=== PATIENT | female | born 1960 | race American Indian/Alaskan Native ===

== ENCOUNTER 2017-03-14 09:49 | Emergency (ER) | payer MEDICARE, OTHER ==
[2017-03-14 10:19] VITALS: BP 125/79; PULSE 83; RESP 16; TEMP 97.8; O2SAT 100
[2017-03-14] MEDS ORDERED: Albuterol 0.083% Inhal Sol (2.5 mg/3 mL) UD ONE (11:14)
[2017-03-14] MEDS ORDERED: Albuterol 0.083% Inhal Sol (2.5 mg/3 mL) UD INH STA (11:17)
--- NOTE | 2017-03-14 11:28 | ED PDOC ---
HPI: CCC, URI, Sore Throat Time Seen by Provider: 03/14/17 10:36 Chief Complaint (Nursing): Cough, Cold, Congestion History Per: Patient History/Exam Limitations: no limitations Have you had recent travel within the past 21 days to any of the following countries: [place], [place], [place] or [place]?: No Onset/Duration Of Symptoms: Gradual Current Symptoms Are (Timing): Still Present Location Of Pain: None Sick Contacts (Context): None Associated Symptoms: Cough, Sputum (yellow). denies: Fever, Chills, Sore Throat , Neck Pain, Nasal Congestion, Nausea, Vomiting, Diarrhea Ear Symptoms: Bilateral: None Severity: Mild Additional History Per: Patient Additional Complaint(s): Pt c/o coughing for x2 days that has been keeping her up at night. No chest pain , no fever, no vomiting, no diarrhea. Past Medical History Reviewed: Historical Data, Nursing Documentation, Vital Signs Vital Signs: Last Vital Signs Temp 97.8 F 03/14/17 10:19 Pulse 83 03/14/17 10:19 Resp 16 03/14/17 10:19 BP 125/79 03/14/17 10:19 Pulse Ox 100 03/14/17 11:30 - Medical History PMH: HTN - Family History Family History: States: Unknown Family Hx - Living Arrangements Living Arrangements: With Family - Social History Current smoker - smoking cessation education provided: No - Immunization History Hx Tetanus Toxoid Vaccination: No Hx Influenza Vaccination: Yes (may 2015) Hx Pneumococcal Vaccination: No - Home Medications Home Medications: Ambulatory Orders Medication Instructions Recorded Lisinopril [Zestril] 5 mg PO DAILY 04/24/15 Albuterol HFA [Ventolin HFA 90 1 puff IH Q6 PRN #1 inhaler 03/14/17 mcg/actuation (8 g)] Loratadine/Pseudoephedrine 1 each PO DAILY PRN #30 tab.er.24h 03/14/17 [Claritin-D 24 Hour Tablet] - Allergies Allergies/Adverse Reactions: Allergies Allergy/AdvReac Type Severity Reaction Status Date / Time No Known Allergies Allergy Verified 10/31/14 18:08 Review of Systems ROS Statement: Except As Marked, All Systems Reviewed And Found Negative Constitutional: Negative for: Fever, Chills Cardiovascular: Negative for: Chest Pain, Palpitations Respiratory: Positive for: Cough, Sputum (yellow). Negative for: Shortness of Breath, SOB with Exertion Gastrointestinal: Negative for: Nausea, Vomiting, Abdominal Pain Skin: Negative for: Rash Neurological: Negative for: Weakness, Numbness Physical Exam - Reviewed Nursing Documentation Reviewed: Yes Vital Signs Reviewed: Yes - Physical Exam Head Exam: Positive for: ATRAUMATIC, NORMAL INSPECTION Eye Exam: Positive for: Normal appearance, EOMI, PERRL Neck: Positive for: Normal, Painless ROM, Supple Cardiovascular/Chest: Positive for: Regular Rate, Rhythm. Negative for: Murmur , Bradycardia, Tachycardia Respiratory: Positive for: Normal Breath Sounds, Wheezing (mild scattered). Negative for: Decreased Breath Sounds, Accessory Muscle Use, Crackles, Rales, Rhonchi, Stridor Gastrointestinal/Abdominal: Positive for: Normal Exam, Bowel Sounds, Soft. Negative for: Tenderness Back: Positive for: Normal Inspection. Negative for: L CVA Tenderness, R CVA Tenderness Extremity: Positive for: Normal ROM. Negative for: Tenderness, Pedal Edema Neurologic/Psych: Positive for: Alert, link trainer II-XII, Oriented. Negative for: Motor/Sensory Deficits - Laboratory Results Urine POC: Negative - ECG O2 Sat by Pulse Oximetry: 100 Pulse Ox Interpretation: Normal - Radiology X-Ray: Interpreted by Me X-Ray Interpretation: No Acute Disease - Progress ED Course And Treament: sx improved with albuterol and clartin dYaneli advise albuterol. pt agree's with plan Re-evaluation Time: 11:57 Condition: Improved Disposition - Clinical Impression Clinical Impression: Cough - Patient ED Disposition Is Patient to be Admitted: No Counseled Patient/Family Regarding: Studies Performed, Diagnosis, Need For Followup, Rx Given - Disposition Referrals: [facility] [place] [Outside] (2 to 3 days) Disposition: Routine/Home Disposition Time: 11:58 Condition: GOOD Prescriptions: Albuterol HFA [Ventolin HFA 90 mcg/actuation (8 g)] 1 puff IH Q6 PRN #1 inhaler PRN Reason: Cough Loratadine/Pseudoephedrine [Claritin-D 24 Hour Tablet] 1 each PO DAILY PRN #30 tab.er.24h PRN Reason: Cough Instructions: Acute Cough (ED)
--- NOTE | 2017-03-14 11:47 | RAD ---
HISTORY: cough COMPARISON: Chest x-ray performed 07/29/15 TECHNIQUE: Chest PA and lateral FINDINGS: LUNGS: No focal consolidation. Please note that chest x-ray has limited sensitivity for the detection of pulmonary masses. PLEURA: No significant pleural effusion identified. No definite pneumothorax . CARDIOVASCULAR: The cardiomediastinal silhouette appears within normal limits of size. OSSEOUS STRUCTURES: Degenerative changes of the spine. VISUALIZED UPPER ABDOMEN: Unremarkable. OTHER FINDINGS: None. IMPRESSION: No focal consolidation, significant pleural effusion, or definite pneumothorax identified.
== END 2017-03-14 12:11 | disposition home or self-care (01) ==
LOC: H.ER 09:49
DX: R05 Cough (principal); I10 Essential (primary) hypertension

== ENCOUNTER 2017-07-16 17:16 | Emergency (ER) | payer MEDICARE, OTHER ==
[2017-07-16 17:23] VITALS: BP 133/74; PULSE 77; RESP 16; TEMP 98.3; O2SAT 100
--- NOTE | 2017-07-16 17:46 | ED PDOC ---
HPI: Skin/Bite Injury Time Seen by Provider: 07/16/17 17:23 Chief Complaint (Nursing): Bite Chief Complaint (Provider): rash History Per: Patient History/Exam Limitations: no limitations Onset/Duration Of Symptoms: Days (x2) Current Symptoms Are (Timing): Still Present Additional Complaint(s): Marjorie Iyer is a 56 year old female with previous medical history of hypertension, who presents to the emergency department with a complaint of skin rash on right-sided abdomen radiating to mid-back associated with pain ongoing for 2 weeks. Denied itchiness, dysuria or hematuria. Patient stated she had been using hydrocortisone cream to treat rash and feels slight improvements. PMD: none provided Past Medical History Reviewed: Historical Data, Nursing Documentation, Vital Signs Vital Signs: Last Vital Signs Temp 98.3 F 07/16/17 17:17 Pulse 77 07/16/17 17:17 Resp 16 07/16/17 17:17 BP 133/74 07/16/17 17:17 Pulse Ox 100 07/16/17 17:53 - Medical History PMH: HTN - Family History Family History: States: Unknown Family Hx - Social History Current smoker - smoking cessation education provided: No Ex-Smoker (has not smoked in the last 12 months): No Alcohol: None Drugs: Denies - Immunization History Hx Tetanus Toxoid Vaccination: No Hx Influenza Vaccination: Yes (may 2015) Hx Pneumococcal Vaccination: No - Home Medications Home Medications: Ambulatory Orders Medication Instructions Recorded Lisinopril [Zestril] 5 mg PO DAILY 04/24/15 Albuterol HFA [Ventolin HFA 90 1 puff IH Q6 PRN #1 inhaler 03/14/17 mcg/actuation (8 g)] Loratadine/Pseudoephedrine 1 each PO DAILY PRN #30 tab.er.24h 03/14/17 [Claritin-D 24 Hour Tablet] Methylprednisolone [Medrol Dose 4 mg PO DAILY #21 mg 07/16/17 Pack (21 tabs)] - Allergies Allergies/Adverse Reactions: Allergies Allergy/AdvReac Type Severity Reaction Status Date / Time No Known Allergies Allergy Verified 10/31/14 18:08 Review of Systems ROS Statement: Except As Marked, All Systems Reviewed And Found Negative Gastrointestinal: Positive for: Abdominal Pain (with rash) Genitourinary Female: Negative for: Dysuria, Hematuria Musculoskeletal: Positive for: Back Pain (with pain) Skin: Positive for: Rash (right-sided abdomen and mid-back). Negative for: Other (itching) Physical Exam - Reviewed Nursing Documentation Reviewed: Yes Vital Signs Reviewed: Yes - Physical Exam Appears: Positive for: Well, Non-toxic, No Acute Distress Head Exam: Positive for: ATRAUMATIC, NORMAL INSPECTION, NORMOCEPHALIC Skin: Negative for: Rash (visualized) Respiratory: Positive for: Normal Breath Sounds, Accessory Muscle Use. Negative for: Decreased Breath Sounds, Respiratory Distress Gastrointestinal/Abdominal: Positive for: Soft, Other (small, fleshy, papular bumps scattered to RUQ radiating to right flank). Negative for: Normal Exam, Tenderness, Mass Back: Positive for: Normal Inspection Neurologic/Psych: Positive for: Alert, Oriented - ECG O2 Sat by Pulse Oximetry: 100 (RA) Pulse Ox Interpretation: Normal Medical Decision Making Medical Decision Making: Initial Impression: Rash R/O shingles Initial Plan: * Urine dipstick * Prednisone 40mg PO Pt educated on signs and symptoms of shingles and advised to returnt o ED if at anytime condition worsens Dip (-) blood, leuks or nites Scribe Attestation: Documented by Anne Millard, acting as a scribe for Traci Mayer Provider Scribe Attestation: All medical record entries made by the Scribe were at my direction and personally dictated by me. I have reviewed the chart and agree that the record accurately reflects my personal performance of the history, physical exam, medical decision making, and the department course for this patient. I have also personally directed, reviewed, and agree with the discharge instructions and disposition. Disposition - Clinical Impression Clinical Impression: Insect bite - Disposition Disposition: Routine/Home Disposition Time: 18:41 Condition: STABLE Additional Instructions: If increased rash develops, return to ED [facility]AN[facility]! Prescriptions: Methylprednisolone [Medrol Dose Pack (21 tabs)] 4 mg PO DAILY #21 mg Instructions: Shingles (ED) Forms: [facility] (Mohawk) - POA Present On Arrival: None
== END 2017-07-16 18:44 | disposition home or self-care (01) ==
LOC: H.ER 17:16
DX: S30.861A Insect bite (nonvenomous) of abdominal wall, initial encounter (principal); S20.461A Insect bite (nonvenomous) of right back wall of thorax, initial encounter; W57.XXXA Bitten or stung by nonvenomous insect and other nonvenomous arthropods, initial encounter; I10 Essential (primary) hypertension

== ENCOUNTER 2018-01-21 20:03 | Emergency (ER) | payer MEDICARE, OTHER ==
[2018-01-21 20:14] VITALS: BP 134/85; PULSE 81; RESP 16; TEMP 98.3; O2SAT 100
--- NOTE | 2018-01-21 20:45 | ED PDOC ---
Lower Extremity Pain/Injury Time Seen by Provider: 01/21/18 20:15 Chief Complaint (Nursing): Lower Extremity Problem/Injury Chief Complaint (Provider): left side leg pain History Per: Patient History/Exam Limitations: no limitations Onset/Duration Of Symptoms: Days (01/21/18) Additional Complaint(s): 57 year old female presents to the ED complaining of left side leg pain. Reports earlier at work she tripped and fell down on her side this morning. She injured her left leg and left upper knee. Denies head injury, tingling, weakness or any other injuries. PMD: Dr. Gail Ge (Non [facility] Provider) - Knee Description Of Injury: Fell - Ankle/Foot Description Of Injury: Fell Past Medical History Reviewed: Historical Data, Nursing Documentation, Vital Signs Vital Signs: Last Vital Signs Temp 98.3 F 01/21/18 20:11 Pulse 81 01/21/18 20:11 Resp 16 01/21/18 20:11 BP 134/85 01/21/18 20:11 Pulse Ox 100 01/21/18 20:11 - Medical History PMH: HTN - Family History Family History: States: Unknown Family Hx - Social History Current smoker - smoking cessation education provided: No Alcohol: None Drugs: Denies - Immunization History Hx Tetanus Toxoid Vaccination: No Hx Influenza Vaccination: Yes (may 2015) Hx Pneumococcal Vaccination: No - Home Medications Home Medications: Ambulatory Orders Medication Instructions Recorded Lisinopril [Zestril] 5 mg PO DAILY 04/24/15 Albuterol HFA [Ventolin HFA 90 1 puff IH Q6 PRN #1 inhaler 03/14/17 mcg/actuation (8 g)] Loratadine/Pseudoephedrine 1 each PO DAILY PRN #30 tab.er.24h 03/14/17 [Claritin-D 24 Hour Tablet] Methylprednisolone [Medrol Dose 4 mg PO DAILY #21 mg 07/16/17 Pack (21 tabs)] - Allergies Allergies/Adverse Reactions: Allergies Allergy/AdvReac Type Severity Reaction Status Date / Time No Known Allergies Allergy Verified 10/31/14 18:08 Review of Systems ROS Statement: Except As Marked, All Systems Reviewed And Found Negative Constitutional: Negative for: Weakness, Other (tingling) Musculoskeletal: Positive for: Leg Pain (left) Neurological: Negative for: Other (head injury) Physical Exam - Reviewed Nursing Documentation Reviewed: Yes Vital Signs Reviewed: Yes - Physical Exam Appears: Positive for: Well, Non-toxic, No Acute Distress Head Exam: Positive for: ATRAUMATIC, NORMAL INSPECTION, NORMOCEPHALIC Skin: Positive for: Normal Color, Warm, Dry Extremity: Positive for: Tenderness (Left lateral knee and left lateral leg ), Capillary Refill (knee refill less than 2cm). Negative for: Deformity, Swelling Neurologic/Psych: Positive for: Alert, Oriented (x3), Gait (steady) - ECG O2 Sat by Pulse Oximetry: 100 (RA) Pulse Ox Interpretation: Normal Medical Decision Making Medical Decision Making: Time: 2017 Initial Plan: --Knee 3 Views LT [RAD] --Tibia Fibula Left [RAD] --Reevaluation Knee xray presents questionable irregularity on medial surface of tibia. CT has been ordered. 2219 CT:1. 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 2. Slight subcutaneous edema anterior to the anterior tibial tubercle and along the lateral aspect of the patella. 3. Otherwise negative CT left knee. No fracture or joint effusion. Motrin PO ordered. Knee don wrap given to patient. Instructed to f/u with Dr. Bassem Apple for further evaluation. Scribe Attestation: Documented by Valdo Fishman, acting as a scribe for Yohannes Servin PA-C Provider Scribe Attestation: All medical record entries made by the Scribe were at my direction and personally dictated by me. I have reviewed the chart and agree that the record accurately reflects my personal performance of the history, physical exam, medical decision making, and the department course for this patient. I have also personally directed, reviewed, and agree with the discharge instructions and disposition. Disposition - Clinical Impression Clinical Impression: Knee injury - Patient ED Disposition Is Patient to be Admitted: No - Disposition Referrals: Raul Burrell MD [Staff Provider] - [facility] [Outside] Disposition: Routine/Home Disposition Time: 22:23 Condition: STABLE Instructions: Knee Pain (DC) Forms: [employer] [facility] (Burkinan), [facility] ED School/Work Excuse Print Language: SERBIAN
--- NOTE | 2018-01-22 09:40 | RAD ---
PROCEDURE: Radiographs of the left tibia and fibula. HISTORY: trauma COMPARISON: None available. TECHNIQUE: Frontal and lateral views obtained. FINDINGS: BONES: No acute fracture. JOINT SPACES: Tibiofemoral compartment degenerative changes. OTHER FINDINGS: None. IMPRESSION: No demonstrated or dislocation.
--- NOTE | 2018-01-22 09:40 | RAD ---
PROCEDURE: Left Knee Radiographs. HISTORY: Pain. COMPARISON: None. FINDINGS: BONES: No acute fracture. JOINTS: Predominantly tibial femoral compartment degenerative changes. JOINT EFFUSION: None. OTHER FINDINGS: None. IMPRESSION: No demonstrated fracture or dislocation.
--- NOTE | 2018-01-23 10:15 | CT ---
PROCEDURE: CT right knee HISTORY: trauma, L knee pain COMPARISON: January 22, 2018. Plain film radiographs left knee TECHNIQUE: 2.5 mm axial acquisition and display. Coronal and sagittal reconstructions. Dose report (mGy-cm): 471.86 3D volume rendering images review. FINDINGS: No acute fracture. Proliferative hypertrophic changes emanating from the femoral condyle and tibial plateau regions. Tricompartmental degenerative change. No evidence of fracture, subluxation, dislocation. IMPRESSION: No acute findings related to/accounting for the clinical presentation. Concordant results (preliminary interpretation) provided by [facility]. Procedure Completed: 21:24 Preliminary ([facility]) Report: Dictated and Authenticated: 22:13 Final Interpretation: 10:14. January 23, 2018.
== END 2018-01-21 22:26 | disposition home or self-care (01) ==
LOC: H.ER 20:03
DX: S89.92XA Unspecified injury of left lower leg, initial encounter (principal); W19.XXXA Unspecified fall, initial encounter; Y99.0 Civilian activity done for income or pay; I10 Essential (primary) hypertension